=== PATIENT | female | born 1955 | race Caucasian/White ===

== ENCOUNTER 2019-04-26 16:54 | Emergency (ER) | payer BC, OTHER, SELFPAY ==
[2019-04-26] MEDS ORDERED: Ketorolac Tromethamine 30 MG/ML VIAL ONE (17:45)
[2019-04-26 17:47] LABS: #Eosinphils 0.6 thou/uL (0.0-0.7); #Lymphocytes 1.7 thou/uL (1.20-3.40); #Monocytes 1.2 thou/uL (0.11-0.59); #Neutrophils 6.3 thou/uL (1.40-6.50); %Basophils 0.1 % (0.0-1.0); %Eosinophils 5.7 % (0.0-10.0); %Neutrophils 65.1 % (42.0-75.0); Hemoglobin 12.5 g/dL (12.0-16.0); Mean Corpuscular HGB CONC 33.3 g/dL (32.0-36.0); Mean Corpuscular Hemoglobin 28.8 pg (27.0-31.0); Mean Corpuscular Volume 86.3 fL (78.0-98.0); Mean Platelet Volume 7.4 fL (7.4-10.4); Platelet Count 285 thou/uL (130-400); RBC Distribution Width 13.1 % (11.5-14.5); Red Blood Cell (RBC) Count 4.35 mill/uL (4.20-5.40); White Blood Cell (WBC) Count 9.7 thou/uL (4.8-10.8)
[2019-04-26 18:07] LABS: ALT (SGPT) 12 U/L (8-55); AST (SGOT) 12 U/L (5-34); Albumin 3.9 g/dL (3.4-4.8); Alkaline Phosphatase 97 U/L (40-150); Anion Gap 10 mmol/L (10-20); BUN (Urea Nitrogen) 8 mg/dL (9.8-20.1); Bilirubin, Total 0.5 mg/dL (0.2-1.2); Calc. Creatinine Clearance 0 mL/min (70-130); Calcium 9.3 mg/dL (7.8-10.44); Carbon Dioxide 27 mmol/L (23-31); Chloride 103 mmol/L (98-107); Estimated GFR-MDRD 57; Globulin 3.1 g/dL (2.4-3.5); Glucose 231 mg/dL (80-115); Potassium 3.9 mmol/L (3.5-5.1); Sodium 136 mmol/L (136-145)
--- NOTE | 2019-04-26 18:58 | CT ---
CONTRAST ENHANCED CT IMAGES OF SOFT TISSUE NECK: 04/26/19 HISTORY: Difficulty swallowing for three days. Contrast enhanced CT of the soft tissue neck obtained. There is massive bilateral submandibular, sublingual, deep cervical and spinal accessory chain lympha denopathy. The extensive lymphadenopathy extends into the supra and subclavicular regions as well as involve the axillary regions which are visualized. Numerous necrotic lymph nodes seen in the left level III and level IV regions. ENT consultation is re commended. There is high concern for extensive metastatic disease and malignancy. The parotid glands demonstrate no definite evidence of masses except for some bilateral inferior paro tid lymph node enlargement also likely due to metastatic disease. IMPRESSION: Extensive bilateral lymphadenopathy, worse on the left than on the right with numerous and markedly e nlarged extranodal spread of tumor with numerous enlarged necrotic lymph nodes. Other non-necrotic ly mph nodes also extensively present. POS: [facility]
== END 2019-04-26 19:42 | disposition home or self-care (01) ==
LOC: ERS 16:54
DX: R59.0 Localized enlarged lymph nodes (principal); E11.9 Type 2 diabetes mellitus without complications; E78.5 Hyperlipidemia, unspecified; I10 Essential (primary) hypertension; F32.9 Major depressive disorder, single episode, unspecified; Z79.84 Long term (current) use of oral hypoglycemic drugs; Z79.82 Long term (current) use of aspirin
CPT/HCPCS: 70491; 80053; 84443; 85025; 96374; J1885

== ENCOUNTER 2019-05-03 11:58 | Day surgery (SDC) | payer OTHER ==
[2019-05-02 16:53] VITALS: BMI 40.2
[~2019-05-03 11:58] MED LIST: Fentanyl 100 MCG/2 ML VIAL ONE
[2019-05-03] MEDS ORDERED: Lidocaine 1% w/Epinephrine 1:100K 20 ML VIAL ONE (12:55)
[2019-05-03] MEDS ORDERED: Succinylcholine Chloride 20 MG/ML 10 ml SYRINGE FS ONE (15:04)
[2019-05-03] MEDS ORDERED: Rocuronium Bromide 10 MG/ML (10ML VIAL) ONE (15:04)
[2019-05-03] MEDS ORDERED: PROPOFOL 200 MG/20 ML VIAL ONE (15:04)
[2019-05-03] MEDS ORDERED: Lidocaine 1% PF 5 ML VIAL ONE (15:04)
--- NOTE | 2019-05-04 09:27 | OP ---
DATE OF PROCEDURE: 05/03/2019 PREOPERATIVE DIAGNOSIS: Left neck lymphadenopathy. POSTOPERATIVE DIAGNOSIS: Left neck lymphadenopathy. PROCEDURE: Excisional biopsy of the lips and neck lymph nodes. ESTIMATED BLOOD LOSS: 5 mL. COMPLICATIONS: None. ANESTHESIA: GETA. DESCRIPTION OF PROCEDURE: The patient was taken to the operating room and placed supine on the table. General endotracheal anesthesia was obtained by the anesthesia staff. The head was gently tilted exposing the left neck wound. The left neck was then prepped and draped in standard surgical fashion. Following this, a horizontal incision was made in left level 5. An incision was made through then skin, subcutaneous tissue, and the platysmal layer. Following this, immediate massive amount of bulky cervical lymphadenopathy was encountered. A large 3 cm lymph node was then excised and sent for fresh pathological analysis. The wound was irrigated and then closed using Monocryl stitches and reyna for the skin. The patient tolerated the procedure well. Job ID: [id number]
--- NOTE | 2019-05-05 21:16 | EKG ---
Test Reason : Blood Pressure : / mmHG Vent. Rate : 071 BPM Atrial Rate : 071 BPM P-R Int : 174 ms QRS Dur : 098 ms QT Int : 426 ms P-R-T Axes : 070 -06 019 degrees QTc Int : 462 ms Normal sinus rhythm ST abnormality, possible digitalis effect Abnormal ECG When compared with ECG of 22-OCT-2010 22:58, T wave inversion less evident in Inferior leads T wave inversion no longer evident in Anterior leads QT has lengthened Confirmed by Devendra PERLA ([id number]) on 05/05/2019 9:16:17 PM Referred By: ANDREAS Confirmed By:Devendra PERLA
== END 2019-05-03 16:20 | disposition home or self-care (01) ==
LOC: SDC 11:58
PROVIDERS: ATTEND Otolaryngology Plastic Surgery within the Head & Neck
PROC: 07T00ZZ Resection of Head Lymphatic, Open Approach (ICD-10-PCS; principal; 2019-05-03)
PROC: 07T20ZZ Resection of Left Neck Lymphatic, Open Approach (ICD-10-PCS; principal; 2019-05-03)
DX: R59.9 Enlarged lymph nodes, unspecified (principal); E78.00 Pure hypercholesterolemia, unspecified; F32.9 Major depressive disorder, single episode, unspecified; G89.29 Other chronic pain; Z79.84 Long term (current) use of oral hypoglycemic drugs; Z79.899 Other long term (current) drug therapy
CPT/HCPCS: 88184; 88307; 88341; 88342; 88360; 93005; 93010; J2001; J3010

== ENCOUNTER 2019-05-16 10:53 | Outpatient (CLI) | payer OTHER ==
--- NOTE | 2019-05-16 14:23 | PET ---
Nuclear medicine FDG PET/CT: (Positron emission tomography and computed tomography) DATE: 05/16/2019 HISTORY: 63-year-old female with follicular lymphoma grade 3 a, initial staging COMPARISON: no prior PET scans TECHNIQUE: IV injection of F-18 fluorodeoxyglucose (FDG) dose: 13.2 mCi. PET scan and attenuation correction CT performed from skull base to proximal thighs. PET scan and attenuation correction CT thinner slices performed through head and neck. FINDINGS: SUV (standard uptake values) numbers given are maximum SUVs. QCLR used. There are significantly enlarged cervical lymph nodes bilaterally at almost all levels. The left-side d lymph nodes are asymmetrically larger than the right. The largest conglomeration is on the left at level 4 and level 3, with previous contrast enhanced CT demonstrating central low attenuation sugg estive of necrosis there. Examples of some of the degree of FDG uptake are as follows: Left level 2: SUV 6 Left level 1B: SUV 4.2 Left level 5A: SUV 7.2 Left level 5B: SUV 7.5 Left level 4: SUV 6.3 Left level 3: SUV 6.9 Right level 1B: SUV 3.1 Right level 2: SUV 5.2 Right level 3: SUV 3.5 Right level 4: SUV 3.2 There are several abnormally mildly enlarged and abnormally shaped round left axillary and subpectora l lymph nodes: Left axillary: SUV 7.1 There are multiple mildly enlarged mediastinal lymph nodes. Most of them have SUVs less than 3, altho ugh they still appear suspicious based on shape and number. There is 1 left lateral prevascular space lymph node with SUV 3.5. Approximate 5.5 x 3.5 cm left para-aortic retroperitoneal lymph node with SUV at least 9.1 ( SUVs of up to 13 are obtained, but those measurements probably include FDG within the left proximal ureter, and therefore are invalid). Left common iliac lymph node of approximately 2.5- 3 cm SUV 5.3. 1.5 cm right common iliac lymph node with SUV 3.9. At the right pelvic inlet there is SUV of 7.4 in what appears to be a conglomeration of small bowel l oops. This may be activity in the lumen. Uncertain whether this is actual lymphoma activity in the bowel wall. 3 x 3 cm left internal iliac chain lymph node with SUV of 8.5. 1.5 x 1 cm right inguinal lymph node with SUV of 3.8. Inferior to that, several other enlarged inguinal lymph nodes, including 3 x 2 cm lower right inguina l lymph node with SUV of 5.0. At contralateral left lower inguinal nodes. For example, 2.5 x 3.5 cm node with SUV of 5.9. IMPRESSION: 1) active lymphoma involvement in numerous locations of neck, chest, abdomen, and pelvis. 2) the worst is in the left neck where there is massive lymphadenopathy with SUV up to 7.5. 3) highest SUV involves large left para-aortic retroperitoneal mass with SUV 9.1.
== END 2019-05-16 10:54 | disposition home or self-care (01) ==
LOC: PET 10:53
PROVIDERS: ATTEND Internal Medicine Hematology & Oncology
DX: C82.31 Follicular lymphoma grade IIIa, lymph nodes of head, face, and neck (principal)
CPT/HCPCS: 78815; A9552

== ENCOUNTER 2019-05-18 07:18 | Day surgery (SDC) | payer OTHER ==
[2019-05-17 12:09] VITALS: BMI 40.0
[2019-05-18] MEDS ORDERED: Propofol 1,000 MG/100 ML VIAL IV ONE (07:24)
[2019-05-18] MEDS ORDERED: Lidocaine 2% PF 5 ML VIAL ONE (08:33)
[2019-05-18] MEDS ORDERED: Bupivacaine/Epinephrine 0.25% 30 ML VIAL ONE (08:33)
[2019-05-18] MEDS ORDERED: Midazolam HCl 2 mg/2 ml Vial ONE (08:40)
--- NOTE | 2019-05-18 09:57 | RAD ---
EXAM: Single view of the chest HISTORY: Mediport placement COMPARISON: 10/22/2010 FINDINGS: Single view of the chest shows an enlarged but stable cardiomediastinal silhouette. The pa tient is status post sternotomy. A right-sided IJ Mediport is seen with its tip in the superior vena cava. No pneumothorax is seen. There is no evidence of consolidation, mass, or pleural effusion. The bones are unremarkable. IMPRESSION: Status post central line placement without evidence of complication.
--- NOTE | 2019-05-18 11:26 | OP ---
DATE OF PROCEDURE: 05/18/2019 PREOPERATIVE DIAGNOSIS: Lymphoma. POSTOPERATIVE DIAGNOSIS: Lymphoma. PROCEDURE PERFORMED: Tunneled central line subcutaneous port (MediPort). ANESTHESIA: TIVA, local. ESTIMATED BLOOD LOSS: Minimal. COMPLICATIONS: None. SPECIMEN: None. FINDINGS: Tip of the catheter at the atriocaval junction. DESCRIPTION OF PROCEDURE: The patient was taken to the operating room and laid supine on the operating room table. After sedation was obtained, bilateral neck and chest were prepped and draped in a sterile fashion. Local anesthetic was infiltrated over the right internal jugular vein. Internal jugular vein was cannulated using a 22-gauge finder needle, followed by a Seldinger needle. Ultrasound was used to access the vein as well for safety. A small janak was made to at the wire entrance site. A separate 3 cm incision was made in the right upper chest. Subcutaneous pocket was made below the lower incision. Tubing for the MediPort tunneled from the inferior to superior incision. Introducer sheath was placed over the wire into the superior vena cava. The dilator and wire were removed. The end of the catheters sewn into the sheath. The sheath was peeled away. The tip of the catheter was at the atriocaval junction. MediPort tubing was cut to fit. The MediPort at the lower incision, connected to MediPort, which was sewn into the chest wall in the subcutaneous pocket using Prolene. The MediPort leila the blood and flushed without difficulty. It was flushed with a heparin flush. All wounds were irrigated and closed using 3-0 Vicryl, 4-0 Monocryl, and Dermabond. The patient was sent to Recovery in stable condition. All instrument counts, needle counts, and lap counts were correct. Job ID: [id number]
== END 2019-05-18 10:40 | disposition home or self-care (01) ==
LOC: SDC 07:18
PROVIDERS: ATTEND Surgery
PROC: 0JH63WZ Insertion of Totally Implantable Vascular Access Device into Chest Subcutaneous Tissue and Fascia, Percutaneous Approach (ICD-10-PCS; principal; 2019-05-18)
DX: C82.91 Follicular lymphoma, unspecified, lymph nodes of head, face, and neck (principal); E78.00 Pure hypercholesterolemia, unspecified; F32.9 Major depressive disorder, single episode, unspecified; I11.9 Hypertensive heart disease without heart failure; Z79.82 Long term (current) use of aspirin; Z79.899 Other long term (current) drug therapy; Z95.1 Presence of aortocoronary bypass graft; Z98.890 Other specified postprocedural states
CPT/HCPCS: 71045; 76000; C1788; J1642; J2001; J2250; J2704

== ENCOUNTER 2019-07-28 08:26 | Outpatient (CLI) | payer OTHER ==
--- NOTE | 2019-07-28 13:34 | PET ---
PET CT: HISTORY: 64-year-old female with high grade large B cell lymphoma. Patient is undergoing chemotherapy. Exam re quested to evaluate response to therapy. COMPARISON: PET CT dated 05/16/19. TECHNIQUE: PET scanning with CT attenuation correction was performed from the vertex through the proximal thighs following the intravenous administration of 13 mCi F18-FDG in the right antecubital fossa. FINDINGS: There is residual activity in the left supraclavicular lymph node with a SUV of 2.8. The hyperactivit y in the remainder of the lymph nodes noted on the previous study has resolved in the interim. No hypermetabolic pulmonary nodules, liver, adrenal, or skeletal lesions are seen. There is increased uptake in the right masseter muscle, likely physiologic. There is physiologic acti vity in the GI and tracts, and the brain. The CT scan used for attenuation correction demonstrates no evidence of pleural effusions or ascites. There is cholelithiasis, fibroid uterus, and colonic diverticulosis. The activity in the left supraclavicular lymph node is greater than the mediastinum but less than the liver (Deauville 3). IMPRESSION: Positive response to therapy with significant improvement since 05/16/19. POS: [facility]
== END 2019-07-28 08:27 | disposition home or self-care (01) ==
LOC: PET 08:26
PROVIDERS: ATTEND Internal Medicine Hematology & Oncology
DX: C85.90 Non-Hodgkin lymphoma, unspecified, unspecified site (principal); E11.9 Type 2 diabetes mellitus without complications
CPT/HCPCS: 78815; A9552

== ENCOUNTER 2019-10-12 09:34 | Outpatient (CLI) | payer OTHER ==
--- NOTE | 2019-10-12 12:17 | PET ---
PET CT HISTORY: Lung mass. TECHNIQUE: PET scanning with CT attenuation correction was performed from the vertex of the brain to the proxima l thighs following the intravenous administration of 12.9 millicuries [id number]. COMPARISON: PET/CT dated July 28, 2019. FINDINGS: Biodistribution: The biodistribution for the exam appears acceptable. Head and neck: There is appropriate background activity within the brain. The hypermetabolic left sup raclavicular lymph node demonstrates some mild residual hypermetabolic activity. The peak activity associated with this lymph node is 2.34 with a mean activity of 2.0. Previously the peak activity was 2.7 with a mean activity of 2.42. No additional hypermetabolic lymph node is present. Thorax: No hypermetabolic pulmonary lesion, pleural effusion or lymphadenopathy is present. Abdomen and pelvis: There is expected background activity within the GI and systems. No hypermetab olic mass, lymphadenopathy or ascites is present. There is stable cholelithiasis and a fibroid uterus. Scarlike prominence in the left periaortic region is stable without associated hypermetabolic activity. Osseous structures and skin: No hypermetabolic skin or osseous lesion is identified. Prominent left g lenohumeral osteoarthrosis with intra-articular bodies is stable. There is a stable right chest wall port. IMPRESSION: Deauville score of 3.0. PET CT findings consistent with complete response. The hypermetabolic activit y associated with the left supraclavicular lymph node has decreased from the most recent PET scan dated July 28, 2019. Transcribed Date/Time: 10/12/2019 12:20 PM
== END 2019-10-12 09:35 | disposition home or self-care (01) ==
LOC: PET 09:34
PROVIDERS: ATTEND Internal Medicine Hematology & Oncology
DX: C82.30 Follicular lymphoma grade IIIa, unspecified site (principal)
CPT/HCPCS: 78815; A9552

== ENCOUNTER 2019-11-24 13:12 | Emergency (ER) | payer OTHER, SELFPAY ==
--- NOTE | 2019-11-24 15:16 | CT ---
CT LUMBAR SPINE WITHOUT CONTRAST: HISTORY: Low back pain. FINDINGS: The vertebral body heights are maintained. Multilevel degenerative changes are seen, manifested by os teophyte formation, disk space narrowing, broad-based disk bulges and facet hypertrophic changes. The re are postop changes of left laminectomy at the L4 level. No fracture or subluxation is seen. There is mild central canal stenosis at the L2-L3 level, severe left neural foraminal stenosis at the L3-L4 level, mild left sided neural foraminal stenosis, moderate to severe central canal stenosis at the L4-L5 level and moderate to severe bilateral neural foraminal stenosis at the L5-S1 level. Incidental note is made of a fibroid uterus. IMPRESSION: Lumbar spondylosis with multilevel stenotic changes, as discussed above. POS: [facility]
[2019-11-24] MEDS ORDERED: Morphine 4 MG/ML VIAL ONE (17:45)
[2019-11-24] MEDS ORDERED: Dexamethasone 10 MG/ML VIAL ONE (17:45)
[2019-11-24] MEDS ORDERED: Acetaminophen 500 MG TAB ONE (17:45)
== END 2019-11-24 18:30 | disposition home or self-care (01) ==
LOC: ERS 13:12
DX: M48.061 Spinal stenosis, lumbar region without neurogenic claudication (principal); I10 Essential (primary) hypertension; E11.9 Type 2 diabetes mellitus without complications; E78.5 Hyperlipidemia, unspecified; F32.9 Major depressive disorder, single episode, unspecified; Z79.899 Other long term (current) drug therapy; Z79.82 Long term (current) use of aspirin; Z79.84 Long term (current) use of oral hypoglycemic drugs
CPT/HCPCS: 72131; 96372; J1100; J2270

== ENCOUNTER 2020-01-09 08:38 | Outpatient (CLI) | payer OTHER ==
--- NOTE | 2020-01-09 10:00 | CT ---
CT ABDOMEN WITH IV CONTRAST 01/09/2020 CLINICAL INFORMATION: Follicular lymphoma. Patient complains of severe right sided back and flank pain. COMPARISON: PET/CT exam on 10/12/2019 Technique: Multiple contiguous axial CT images are obtained through the abdomen and pelvis with IV contrast. Cor onal reformatted images are provided. FINDINGS: Lower Chest: Minimal atelectasis present at the right lung base. Vessels: Vascular calcifications are seen in the abdominal aorta as well as visualized coronary arter ies. Abdomen: Portal vein:Patent Gallbladder: Gallbladder calculi are again visualized. Liver: within normal limits. Spleen: within normal limits. Pancreas: within normal limits. Adrenals: within normal limits. Kidneys: Mild scarring superior pole right kidney. There is an 11 mm hypodense lesion in the midporti on right kidney which is difficult to characterize due to small size but statistically likely represents a small cyst. Bowel: Scattered colonic diverticula are seen in the visualized ascending colon. Small amount retaine d fecal material is seen within the colon. Loops of small bowel are normal in caliber. Peritoneum: No ascites or free air; no fluid collection. Mesentery and Retroperitoneum: There is irregular soft tissue density seen in a left periaortic locat ion greater along the left lateral aspect of the normal aorta below the level of the renal vessels. This area was also seen on prior PET/CT examination 10/12/2019, but this area does not demonstrate ab normal uptake of FDG. This was in an area of bulky lymphadenopathy on prior PET/CT exam on 05/16/2029. Findings are likely attributable to response to therapy with residual soft tissue density in this region. No new enlarged lymph nodes are seen by CT size criteria. Abdominal Wall: Tiny fat-containing umbilical hernia. Bones: Degenerative changes throughout the spine. Imaging of the pelvis was not performed. IMPRESSION: 1. Residual soft tissue density in the left periaortic location. This was also seen on prior PET/CT e xam on 10/12/2019, but no abnormal FDG uptake was seen in this region. This area was in region of prior bulky lymphadenopathy. Findings are likely related to response to therapy. No new enlarged lymph nodes are seen within the abdomen. 2. Cholelithiasis. 3. Difficult to characterize hypodense lesion right kidney statistically likely representing a cyst. 4. Colonic diverticulosis.
[2020-01-09] MEDS ORDERED: Iopamidol-370 76% 500 ML 1 ML ONE (12:39)
== END 2020-01-09 08:39 | disposition home or self-care (01) ==
LOC: BICCT 08:38
PROVIDERS: ATTEND Internal Medicine Hematology & Oncology
DX: C82.31 Follicular lymphoma grade IIIa, lymph nodes of head, face, and neck (principal); K80.20 Calculus of gallbladder without cholecystitis without obstruction; K57.30 Diverticulosis of large intestine without perforation or abscess without bleeding; N28.9 Disorder of kidney and ureter, unspecified
CPT/HCPCS: 74160; Q9967

== ENCOUNTER 2020-07-25 07:47 | Outpatient (CLI) | payer OTHER ==
[2020-07-25 11:14] LABS: #Eosinphils 0.4 thou/uL (0.0-0.7); #Lymphocytes 2.1 thou/uL (1.20-3.40); #Monocytes 0.3 thou/uL (0.11-0.59); #Neutrophils 3.3 thou/uL (1.40-6.50); %Basophils 0.5 % (0.0-1.0); %Eosinophils 6.8 % (0.0-10.0); %Lymphocytes 34.4 % (21.0-51.0); %Monocytes 5.2 % (0.0-10.0); %Neutrophils 53.2 % (42.0-75.0); Hemoglobin 14.8 g/dL (12.0-16.0); Mean Corpuscular HGB CONC 33.8 g/dL (32.0-36.0); Mean Corpuscular Hemoglobin 30.3 pg (27.0-31.0); Mean Corpuscular Volume 89.6 fL (78.0-98.0); Mean Platelet Volume 7.2 fL (7.4-10.4); Platelet Count 252 thou/uL (130-400); RBC Distribution Width 12.6 % (11.5-14.5); Red Blood Cell (RBC) Count 4.88 mill/uL (4.20-5.40); White Blood Cell (WBC) Count 6.2 thou/uL (4.8-10.8)
[2020-07-25 11:47] LABS: ALT (SGPT) 21 U/L (8-55); AST (SGOT) 18 U/L (5-34); Albumin 4.4 g/dL (3.4-4.8); Alkaline Phosphatase 100 U/L (40-110); Anion Gap 15 mmol/L (10-20); BUN (Urea Nitrogen) 13 mg/dL (9.8-20.1); Bilirubin, Total 0.5 mg/dL (0.2-1.2); Calc. Creatinine Clearance 0 mL/min (70-130); Calcium 9.4 mg/dL (7.8-10.44); Carbon Dioxide 23 mmol/L (23-31); Chloride 103 mmol/L (98-107); Estimated GFR-MDRD 66; Globulin 2.2 g/dL (2.4-3.5); Glucose 281 mg/dL (80-115); Potassium 4.3 mmol/L (3.5-5.1); Protein, Total 6.6 g/dL (6.0-8.3); Sodium 137 mmol/L (136-145)
[2020-07-25 17:09] LABS: SARS-CoV-2 MS2 Positive; SARS-CoV-2 N Gene Negative; SARS-CoV-2 S Gene Negative; SARS-CoV-2 by NAA Not Detected (NotDetected); SARS-CoV-2 orf1ab Negative
== END 2020-07-25 07:48 | disposition home or self-care (01) ==
LOC: LABBT 07:47
PROVIDERS: ATTEND Internal Medicine Cardiovascular Disease
DX: Z01.812 Encounter for preprocedural laboratory examination (principal); Z20.828 Contact with and (suspected) exposure to other viral communicable diseases
CPT/HCPCS: 80053; 85025; 87635; U0003

== ENCOUNTER 2020-07-30 06:06 | Day surgery (SDC) | payer OTHER ==
[2020-07-26 09:48] VITALS: BMI 38.9
[2020-07-30] MEDS ORDERED: Heparin 10,000 UNITS/ 10 ML VIAL ONE (06:29)
[2020-07-30] MEDS ORDERED: Lidocaine 1% (PF) 30 ML VIAL ONE (06:47)
[2020-07-30] MEDS ORDERED: Fentanyl 100 MCG/2 ML VIAL ONE (07:06)
[2020-07-30] MEDS ORDERED: Midazolam HCl 2 mg/2 ml Vial ONE (07:07)
[2020-07-30] MEDS ORDERED: Bivalirudin 250 MG VIAL ONE (07:45)
[2020-07-30] MEDS ORDERED: Nitroglycerin 100MG/250ML BOT 250 ML ONE (07:45)
[2020-07-30] MEDS ORDERED: Clopidogrel Bisulfate 300 MG TAB ONE (07:48)
--- NOTE | 2020-07-30 07:49 | RAD ---
EXAM: Single view of the chest HISTORY: Preoperative radiograph COMPARISON: 05/18/2019 FINDINGS: Single view of the chest shows an enlarged but stable cardiomediastinal silhouette. Patien t is status post sternotomy. The Mediport is unchanged in position. There is no evidence of consolidation, mass, or pleural effusion. Degenerative changes are seen in the spine. IMPRESSION: Cardiomegaly
[2020-07-30] MEDS ORDERED: Iopamidol 370 76% 100 ML VIAL ONE (10:49)
[2020-07-30] MEDS ORDERED: Iopamidol 370 76% 50 ML VIAL FS ONE (10:49)
[2020-07-30] MEDS ORDERED: Mag-Al 1200 mg/1200 mg/30 ML UDCUP ONE (14:12)
--- NOTE | 2020-07-30 22:24 | EKG ---
Test Reason : POST STENTS X2 Blood Pressure : / mmHG Vent. Rate : 059 BPM Atrial Rate : 059 BPM P-R Int : 192 ms QRS Dur : 096 ms QT Int : 536 ms P-R-T Axes : 041 001 036 degrees QTc Int : 530 ms Sinus bradycardia Nonspecific T wave abnormality Prolonged QT Abnormal ECG No previous ECGs available Confirmed by Devendra PERLA ([id number]) on 07/30/2020 10:23:58 PM Referred By: VIC Confirmed By:Devendra PERLA
== END 2020-07-30 18:02 | disposition home or self-care (01) ==
LOC: CCL 06:06
PROVIDERS: ATTEND Internal Medicine Cardiovascular Disease
PROC: 4A023N7 Measurement of Cardiac Sampling and Pressure, Left Heart, Percutaneous Approach (ICD-10-PCS; principal; 2020-07-30)
PROC: B2111ZZ Fluoroscopy of Multiple Coronary Arteries using Low Osmolar Contrast (ICD-10-PCS; principal; 2020-07-30)
DX: I25.10 Atherosclerotic heart disease of native coronary artery without angina pectoris (principal); C85.11 Unspecified B-cell lymphoma, lymph nodes of head, face, and neck; E78.00 Pure hypercholesterolemia, unspecified; I10 Essential (primary) hypertension; E11.9 Type 2 diabetes mellitus without complications; E66.9 Obesity, unspecified; Z68.39 Body mass index [BMI] 39.0-39.9, adult; Z79.84 Long term (current) use of oral hypoglycemic drugs; Z79.899 Other long term (current) drug therapy; Z82.49 Family history of ischemic heart disease and other diseases of the circulatory system; Z95.1 Presence of aortocoronary bypass graft
CPT/HCPCS: 71045; 85347; 92928; 92929; 93005; 93459; 99152; 99153; C1876; J0583; J1644; J2001; J2250; J3010; Q9967

== ENCOUNTER 2020-11-13 06:52 | Day surgery (SDC) | payer OTHER ==
[2020-11-11 10:17] VITALS: BMI 38.9
[2020-11-13] MEDS ORDERED: cefOXitin Sodium/Dextrose 2 GM/50 ML BAG ONE (07:41)
[2020-11-13] MEDS ORDERED: Midazolam HCl 2 mg/2 ml Vial ONE ×2 (08:10→09:05)
[2020-11-13] MEDS ORDERED: Bupivacaine PF 0.5% 30 ML VIAL ONE (08:58)
[2020-11-13] MEDS ORDERED: Lidocaine 1% w/Epinephrine 1:100K 20 ML VIAL ONE (08:58)
[2020-11-13] MEDS ORDERED: Fentanyl 100 MCG/2 ML VIAL ONE (09:05)
[2020-11-13] MEDS ORDERED: Ondansetron PF 4 MG/2 ML Vial ONE (09:49)
[2020-11-13] MEDS ORDERED: Rocuronium Bromide 10 MG/ML (10ML VIAL) ONE (09:49)
[2020-11-13] MEDS ORDERED: Lidocaine 1% PF 5 ML VIAL ONE (09:49)
[2020-11-13] MEDS ORDERED: PHENYLEPHRINE-NS 100 MCG/ML 10 ML SYRINGE ONE (09:49)
[2020-11-13] MEDS ORDERED: PROPOFOL 200 MG/20 ML VIAL ONE (09:49)
[2020-11-13] MEDS ORDERED: Glycopyrrolate 0.2 MG/ML 5 ML SYRINGE ONE (09:49)
--- NOTE | 2020-11-13 10:29 | OP ---
DATE OF PROCEDURE: 11/13/2020 PREOPERATIVE DIAGNOSIS: Symptomatic cholelithiasis. PROCEDURE PERFORMED: Laparoscopic cholecystectomy. INDICATIONS: A 65-year-old female, who has been having severe right upper quadrant pain. Ultrasound showed cholelithiasis. FINDINGS: She had a small caliber cystic duct. Normal liver functions. DESCRIPTION OF PROCEDURE: After informed consent was obtained, the patient was taken to the operating room and given general endotracheal anesthesia. She was placed in the supine position. Abdomen was prepped and draped in usual fashion. Local anesthesia was infiltrated subcutaneously and deep, and a subumbilical incision was performed. Subcu divided sharply. The fascia was grasped and 2 stay sutures of 0 Vicryl placed through each side of midline. Midline incised. Digital palpation revealed no local adhesions. A blunt 12-mm trocar inserted. Pneumoperitoneum was created to a pressure of 15 mmHg. A 0-degree laparoscope inserted under direct vision, three 5-mm ports were placed subcostally. The gallbladder grasped, advanced superiorly. The peritoneum lysed distally to expose the cystic duct, cystic artery in critical view. The duct and artery triply ligated with hemoclips and divided. The gallbladder removed from its fossa utilizing electrocautery, removed from the abdomen through the umbilical port. Hemostasis was achieved with electrocautery and Ivan powder. The trocars and retractors were removed. The fascia closed with interrupted 0 Vicryl suture. The skin closed with interrupted 4-0 Rapide. Dermabond applied. The patient tolerated the procedure well, transferred to Recovery in good condition. Sponge and needle count verified correct x2. Job ID: [id number]
[2020-11-13] MEDS ORDERED: Ondansetron ODT 4 MG TAB ONE (11:12)
== END 2020-11-13 12:23 | disposition home or self-care (01) ==
LOC: SDC 06:52
PROVIDERS: ATTEND Surgery
PROC: 0FT44ZZ Resection of Gallbladder, Percutaneous Endoscopic Approach (ICD-10-PCS; principal; 2020-11-13)
DX: K80.10 Calculus of gallbladder with chronic cholecystitis without obstruction (principal); Z79.82 Long term (current) use of aspirin; Z79.84 Long term (current) use of oral hypoglycemic drugs; Z79.899 Other long term (current) drug therapy
CPT/HCPCS: 36416; 88304; J0694; J2250; J3010; Q0162; S0020

== ENCOUNTER 2021-02-12 08:40 | Outpatient (CLI) | payer BC ==
[2021-02-12] MEDS ORDERED: Iopamidol 370 76% 100 ML VIAL ONE (13:54)
== END 2021-02-12 08:41 | disposition home or self-care (01) ==
LOC: BICCT 08:40
PROVIDERS: ATTEND Internal Medicine Hematology & Oncology
DX: C82.31 Follicular lymphoma grade IIIa, lymph nodes of head, face, and neck (principal); D25.9 Leiomyoma of uterus, unspecified; I51.7 Cardiomegaly; Z95.9 Presence of cardiac and vascular implant and graft, unspecified; Z90.49 Acquired absence of other specified parts of digestive tract
CPT/HCPCS: 70491; 71260; 74177; Q9967

== ENCOUNTER 2021-03-05 13:30 | Outpatient (CLI) | payer BC ==
[2021-03-06 04:13] LABS: SARS-CoV-2 PCR by NAA Not Detected (NotDetected)
== END 2021-03-05 13:31 | disposition home or self-care (01) ==
LOC: LABBT 13:30
PROVIDERS: ATTEND Physical Medicine & Rehabilitation
DX: Z01.812 Encounter for preprocedural laboratory examination (principal); Z20.822 Contact with and (suspected) exposure to COVID-19
CPT/HCPCS: 87635; U0003; U0005

== ENCOUNTER 2021-03-24 09:53 | Day surgery (SDC) | payer BC ==
[2021-03-21 14:09] VITALS: BMI 38.8
[2021-03-24] MEDS ORDERED: Sodium Chloride 0.9% 20 ML ONE (10:13)
[2021-03-24] MEDS ORDERED: Sodium Chloride 0.9% 10 ML ONE (10:14)
[2021-03-24] MEDS ORDERED: Fentanyl 100 MCG/2 ML VIAL ONE (11:12)
[2021-03-24] MEDS ORDERED: Famotidine/PF 20 mg/2ml Vial ONE (12:13)
[2021-03-24] MEDS ORDERED: ePHEDrine Sulfate 50 MG/10 ML VIAL ONE (12:15)
[2021-03-24] MEDS ORDERED: PROPOFOL 200 MG/20 ML VIAL ONE (12:15)
[2021-03-24] MEDS ORDERED: Glycopyrrolate 0.2 MG/ML 5 ML SYRINGE ONE (12:15)
[2021-03-24] MEDS ORDERED: Ondansetron PF 4 MG/2 ML Vial ONE (12:15)
[2021-03-24] MEDS ORDERED: Lidocaine 1% PF 5 ML VIAL ONE (12:15)
[2021-03-24] MEDS ORDERED: PHENYLEPHRINE-NS 100 MCG/ML 10 ML SYRINGE ONE (12:15)
== END 2021-03-24 14:40 | disposition home or self-care (01) ==
LOC: SDC/OP 09:53
PROVIDERS: ATTEND Physical Medicine & Rehabilitation
DX: M47.812 Spondylosis without myelopathy or radiculopathy, cervical region (principal); M50.21 Other cervical disc displacement, high cervical region; M50.30 Other cervical disc degeneration, unspecified cervical region; M48.02 Spinal stenosis, cervical region; M51.24 Other intervertebral disc displacement, thoracic region; E66.3 Overweight; Z68.38 Body mass index [BMI] 38.0-38.9, adult; Z79.82 Long term (current) use of aspirin; Z79.84 Long term (current) use of oral hypoglycemic drugs; Z79.899 Other long term (current) drug therapy
CPT/HCPCS: 72141; 72146; J2405; J2704; J3010; S0028

== ENCOUNTER 2022-05-20 11:01 | Outpatient (CLI) | payer BC | END 2022-05-20 11:02 | disposition home or self-care (01) | LOC: BICCT 11:01 | PROVIDERS: ATTEND Internal Medicine Hematology & Oncology | DX: R91.8 Other nonspecific abnormal finding of lung field (principal); C82.31 Follicular lymphoma grade IIIa, lymph nodes of head, face, and neck | CPT/HCPCS: 71250 ==

== ENCOUNTER 2023-01-26 09:31 | Outpatient (CLI) | payer BC | END 2023-01-26 09:32 | disposition home or self-care (01) | LOC: RAD-FRANK 09:31 | PROVIDERS: ATTEND Physical Medicine & Rehabilitation | DX: M25.512 Pain in left shoulder (principal); M89.412 Other hypertrophic osteoarthropathy, left shoulder; M25.712 Osteophyte, left shoulder; M24.012 Loose body in left shoulder | CPT/HCPCS: 80061; 85025 ==

== ENCOUNTER 2024-05-02 07:59 | Outpatient (CLI) | payer BC | END 2024-05-02 08:00 | disposition home or self-care (01) | LOC: BICCT 07:59 | PROVIDERS: ATTEND Internal Medicine Hematology & Oncology | DX: C82.31 Follicular lymphoma grade IIIa, lymph nodes of head, face, and neck (principal); N28.1 Cyst of kidney, acquired; J84.10 Pulmonary fibrosis, unspecified; D25.9 Leiomyoma of uterus, unspecified; M47.9 Spondylosis, unspecified; N85.8 Other specified noninflammatory disorders of uterus | CPT/HCPCS: 71260; 74177; 82565 ==